=== PATIENT | male | born 1940 | race Caucasian/White ===

== ENCOUNTER → 2017-11-14 | Day surgery (SDC) | payer MEDICARE, OTHER ==
[~2017-11-14] VITALS: Ht 180.3 cm; Wt 79.4 kg
[~2017-11-14] MED LIST: ALPR-429 PO; BACDS PO; CIP500 PO; CLOP75TA PO; DIG125 PO; DILSR120 PO; DOC100 PO; ENA5 PO; FES4PT PO; GAB300 PO; GABA-549 PO; LACT1CAP6 PO; LIDOCAINE/SOD BICARB 8.4% SYR ID ONE; LOR5 PO; LOSA25TA46 PO; METO25TA93 PO; NIT4 SL; NORMOSOL R SOLN(*) 1000 ML BAG 1,000 ML IV PRN; NS(*) 0.9% 100 ML BAG 100 ML ONE; OMEP40CA45 PO; PHENA200 PO; PREVALITE; SOTA120T39 PO; SUPER B COMPLEX; TAM4 PO; WAR75 PO; WARF10TA29 PO
[2017-11-14 06:06] VITALS: BP 143/78
--- NOTE | 2017-11-14 07:20 | Post Operative Progress Note ---
Post Operative Progress Note Date: November 14, 2017 Time: 07:57 Surgeon: laly Anesthesia: dr sal Pre-Op Diagnosis: screening colonoscopy Post-Op Diagnosis: 2 mm polyp at 15 cm Procedure(s): colonoscopy and polypectomy FLOR TYSON MD November 14, 2017 07:20
--- NOTE | 2017-11-14 07:21 | Short(Outpt) Discharge Summary ---
Discharge Summary Reason for Hosp/Final Diag: (1) Encounter for screening colonoscopy Hospital Course & Plan: 2 mm polyp at 15 cm Departure Discharge to: Home Discharge Instructions Home Meds Reported Medications Alprazolam (XANAX) 0.5 Mg Tablet, 0.5 TAB PO DAILY Y for ANXIETY, TAB 11/12/17 Clopidogrel Bisulfate (CLOPIDOGREL) 75 Mg Tablet, 1 TAB PO QDAY, TAB 01/21/17 Metoprolol Tartrate (METOPROLOL TARTRATE) 25 Mg Tablet, 1 TAB PO BID, TAB 01/21/17 Enalapril Maleate (VASOTEC (OR EQUIV)) 5 Mg Tab, 10 MG PO BID 12/27/11 Discontinued Reported Medications Gabapentin (GABAPENTIN) 300 Mg Capsule, 300 MG PO BID, CAPSULE 01/21/17 Omeprazole (Prilosec) 40 Mg Capsule.dr, 40 MG PO QDAY Y for DYSPEPSIA 01/31/12 Tamsulosin Hcl (Flomax) 0.4 Mg Cap, 0.4 MG PO QDAY 12/27/11 Diet: Regular Activity: As Tolerated FLOR TYSON MD November 14, 2017 07:20
[2017-11-14 08:01] VITALS: BP 159/75
[2017-11-14 08:16] VITALS: BP 114/63
[2017-11-14 08:42] VITALS: BP 123/81
[2017-11-14 08:44] VITALS: BP 158/68
[2017-11-14 08:47] VITALS: BP 156/88
--- NOTE | 2017-11-14 14:26 | OPERATIVE REPORT 1 ---
EVENT DATE: November 14, 2017 SURGEON: Lavelle Pearson MD ANESTHESIOLOGIST: Anthony Mascorro MD ANESTHESIA: Sedation. PREOPERATIVE DIAGNOSIS Screening colonoscopy. POSTOPERATIVE DIAGNOSIS A 2 mm polyp at 15 cm. PROCEDURE PERFORMED Colonoscopy with polypectomy. DESCRIPTION OF PROCEDURE Patient was placed in the left lateral decubitus position, given intravenous sedation. Rectal exam was unremarkable. Flexible colonoscope was inserted and advanced to the cecum. He had an excellent bowel prep. The ileocecal valve, base of the cecum, and appendiceal orifice were identified. Scope was slowly withdrawn. Care was taken to look behind the haustral folds. No abnormalities were noted in the cecum, right colon, transverse, descending, or sigmoid colon. In the rectum at 15 cm, he had a small, 2 mm projection. This was grasped with a hot biopsy biter, a little cautery was applied, and then biopsy was removed. There was no bleeding noted. The scope was retroflexed, and that appeared to be normal. The patient tolerated the procedure well. No apparent complications. [facility]
== END ==
LOC: OR 00:50
PROVIDERS: ATTEND Surgery
DX: Z12.11 Encounter for screening for malignant neoplasm of colon (principal); D12.8 Benign neoplasm of rectum
CPT/HCPCS: 00811; 45384; 88305; J7050